=== PATIENT | female | born 1965 | race Caucasian/White ===

== ENCOUNTER 2025-03-26 10:12 | Outpatient (CLI) | payer MEDICARE, MEDICAID ==
[~2025-03-26 10:12] MED LIST: BENZ1TAB78 PO; DIVA500T9 PO; PALI234D IM
[2025-03-26 11:01] VITALS: PULSE 72; RESP 16; O2SAT 94
--- NOTE | 2025-03-26 15:12 | PROCEDURE NOTE - Respiratory ---
Procedure Note-Respiratory Providers to CC Copies To 1: JUANY SHEPPARD Procedure Name: This is a spirometry study dated March 26, 2025. Spirometry measurements: There is mild reduction in the forced vital capacity. The FEV1 is in the lower range of normal. The FEV1 ratio is elevated. All of the flow rate measurements are excellent. Bronchodilator was not administered as part of the study. Conclusion: This study shows mild abnormality. There is a tendency showing towards mild restrictive ventilatory defect. There is no evidence for obstructive ventilatory defect. Despite this patient's history of cigarette smoking, she is not showing the typical findings of COPD. The restrictive ventilatory changes may in part relate to the patient's obesity condition. We have no previous studies for comparison. It is strongly recommended that the patient abstain from cigarette smoking. SHE CONTRERAS MD March 26, 2025 15:12
== END 2025-03-26 23:59 | disposition home or self-care (01) ==
LOC: RT 10:12
PROVIDERS: ATTEND Student in an Organized Health Care Education/Training Program
DX: R06.02 Shortness of breath (principal); J98.8 Other specified respiratory disorders
CPT/HCPCS: 94010; 94760